=== PATIENT | male | born 1975 ===

== ENCOUNTER 2017-04-02 10:42 | Emergency (ER) | payer BC, OTHER ==
[2017-04-02 10:47] VITALS: BP 146/88; PULSE 99; RESP 16; TEMP 98.4; O2SAT 97
--- NOTE | 2017-04-02 10:59 | EDPHY ---
H & P Time Seen by Provider: 04/02/17 10:53 HPI/ROS: CHIEF COMPLAINT: Right hand injury HISTORY OF PRESENT ILLNESS: 41-year-old male presents to the emergency department by private vehicle with injury to his right hand. The patient was trying to move a cloth drier at home and he got his right hand caught and then he twisted his hand try to pull out. Complains of isolated pain to the right hand specifically to the right 3rd finger. He is right-hand dominant. He has pain with range of motion. Denies any other trauma or injury. ROS: Denies numbness or tingling in his fingers, pain in his right wrist or elbow. Past Medical/Surgical History: Negative Social History: and lives in [place] Smoking Status: Former smoker Physical Exam: On examination there is mild swelling and ecchymosis noted especially over the proximal phalanx of the right 3rd finger. He has limited flexion and extension of the right 3rd finger secondary to pain. He has normal sensation to light touch with normal 2 point discrimination. No rotational deformities noted. Full range of motion of the right wrist and elbow. No abrasions or puncture wounds. Capillary refills less than 2 seconds. Strong radial pulse at the right wrist. Constitutional: Initial Vital Signs Temperature (C) 36.9 C 04/02/17 10:42 Heart Rate 99 04/02/17 10:42 Respiratory Rate 16 04/02/17 10:42 Blood Pressure 146/88 H 04/02/17 10:42 O2 Sat (%) 97 04/02/17 10:42 O2 Delivery Mode Room Air Allergies/Adverse Reactions: No Known Allergies Allergy (Unverified 04/25/16 17:58) Home Medications: Medication Instructions Recorded Adderall 10 MG (*) 04/25/16 Lexapro 04/25/16 Orphenadrine Citrate [Norflex 100 100 mg PO BID #14 tab 04/25/16 mg (*)] MDM/Departure - MDM Imaging: I viewed and interpreted images myself Procedures: Patient was placed in [place] splint and fingers saadia-taped. Was examined post application in good placement with normal ELECTRIC ARC WELDER. ED Course/Re-evaluation: 41-year-old male presents to the emergency department with right hand injury. X- rays reveal a possible avulsion fracture to the base of the proximal phalanx at the PIP joint. Patient was placed in [place] splint, fingers saadia-taped, and he was given orthopedic hand surgical referral. - Depart Disposition: Home, Routine, Self-Care Clinical Impression: Possible avulsion fracture right middle Sprain of right hand Qualifiers: Encounter type: initial encounter Qualified Code(s): S63.91XA - Sprain of unspecified part of right wrist and hand, initial encounter Condition: Good Instructions: Hand Sprain (ED), Finger Fracture (ED) Additional Instructions: Splint for comfort and support. Ibuprofen 600 mg every 8 hours as needed for pain. Activity as tolerated. It is possible that you have a small avulsion fracture in your right middle finger at the PIP joint. You should follow up with orthopedic hand surgeon in 1 week. Referrals: Carlos Herman MD [Medical Doctor] - 5-7 days, call for appt. (Orthopedic hand surgeon on-call)
== END 2017-04-02 11:40 | disposition home or self-care (01) ==
DX: S63.91XA Sprain of unspecified part of right wrist and hand, initial encounter (principal); Z87.891 Personal history of nicotine dependence; W23.0XXA Caught, crushed, jammed, or pinched between moving objects, initial encounter; Y92.009 Unspecified place in unspecified non-institutional (private) residence as the place of occurrence of the external cause
CPT/HCPCS: L3925